=== PATIENT | female | born 1995 ===

== ENCOUNTER 2017-10-27 08:33 | Emergency (ER) | payer OTHER ==
[2017-10-27 09:20] VITALS: BP 121/62
--- NOTE | 2017-10-27 10:27 | UC ---
Jessica Randall Julia, scribed for Pauline Sol MD on 10/27/17 at 0942 . General HPI - HPI Summary HPI Summary: A 22 year old F presents to [facility] with a chief complaint of sore and scratchy throat for the past two weeks without improvement. Symptoms improved on 10/19/17 and then worsened again on 10/25/17. Reports nasal congestion and a recent fever of 99.6; Tylenol last taken yesterday. Denies changes in appetite, ear pain, and post nasal drip. She has been taking Robitussin, Theraflu, and cough drops. She reports recent travel to [facility] while working at a [employer] with young children. Denies chance of . Medications and Allergies reviewed. - History of Current Complaint Chief Complaint: UCRespiratory Stated Complaint: SORE THROAT,CONGESTED Time Seen by Provider: 10/27/17 09:18 Hx Obtained From: Patient Hx Last Menstrual Period: 09/29/17 Onset/Duration: Lasting Weeks, Still Present, Worse Since - two days Pain Intensity: 0 Pain Location at: throat Character: scrathcy Associated Signs & Symptoms: Positive: Fever - Allergy/Home Medications Allergies/Adverse Reactions: Allergies Allergy/AdvReac Type Severity Reaction Status Date / Time No Known Allergies Allergy Verified 10/27/17 08:53 Home Medications: Home Medications Atovaquone/Proguanil (NF) [Malarone (NF)] 10/27/17 [History] Pheniramine/P-Eph/Acetaminophn [Theraflu Flu & Sore Throat] 10/27/17 [History] guaiFENesin LIQ* [Robitussin*] 10/27/17 [History] PMH/Surg Hx/FS Hx/Imm Hx Previously Healthy: Yes - Surgical History Surgical History: None - Family History Known Family History: Positive: Other - non contributory - Social History Occupation: Employed Full-time Lives: With Family Alcohol Use: None Substance Use Type: None Smoking Status (MU): Never Smoked Tobacco Review of Systems Constitutional: Fever Eyes: Negative - ear pain, post nasal drip, ENT: Sore Throat, Sinus Congestion Gastrointestinal: Negative All Other Systems Reviewed And Are Negative: Yes Physical Exam - Summary Physical Exam Summary: Vital Signs Reviewed: Yes A+Ox3, no distress Eyes: Conjunctiva Clear, MARCIN. EOM intact and full ENT: Hearing grossly normal fluid left TM. turbinates inflammed and boggy. + PND mmoist, uvula midline, no exudate, no erythema Neck: Positive: Supple Respiratory: Positive: No respiratory distress, No accessory muscle use + CTA throughout no w/r Cardiovascular: RRR nl s1, s2 no m/r CBT <2 sec abd soft + BS nt/nd no guarding, no distension Musculoskeletal Exam: GOMEZ x 4 without difficulty Strength Intact, ROM Intact Neurological: Positive: Alert, + sensation throughout Psychological: Positive: Normal Response To Family Skin: Positive: no rash, no ecchymosis Triage Information Reviewed: Yes Vital Signs: Initial Vital Signs Temp 99.6 F 10/27/17 08:46 Pulse 72 10/27/17 08:46 Resp 16 10/27/17 08:46 BP 121/62 10/27/17 08:46 Pulse Ox 100 10/27/17 08:46 Course/Dx - Course Course Of Treatment: Patient presents with recurrent sinus congestion, postnasal drip, sore throat after ten-day course and in 3 days improvement. Patient's taken [id number] medication without any relief. Patient with recent travel exposed to people with head congestion colds. On exam, patient with body terminates in postnasal drip. Patient referred left ear. Will prescribe a short term antibiotic. Will prescribe Flonase. Encourage patient to take allergy medication with decongestant. Discussed with patient secretion precautions. Patient comfortable in agreement with plan. - Differential Dx - Multi-Symptom Provider Diagnoses: sinusitis Discharge - Sign-Out/Discharge Documenting (check all that apply): Discharge/Admit/Transfer - Discharge Plan Condition: Stable Disposition: HOME Prescriptions: Azithromycin TAB* [Zithromax TAB (Z-MO) 250 mg #6 tabs] 2 tab PO .TODAY, THEN 1 DAILY #1 mo Fluticasone NASAL SPRAY 50MCG* [Flonase NASAL SPRAY 50MCG*] 2 spray BOTH NARES DAILY #1 btl Patient Education Materials: Rhinosinusitis (ED) Referrals: Taisha Brooks MD [Primary Care Provider] - Additional Instructions: - Stay well hydrated. Drink plenty of non-alcoholic, non-caffinated beverages. - Alternate ibuprofen (Advil, Motrin) 600mg and Tylenol every 3 hours for pain or fever. Take with food. Do NOT take for more than 4-5 days. - These infections are spread by secretions - do NOT share eating or drinking utensils - clean items you share with other people such as cell phones, computer mouse, TV remote, computer tablets,etc. Once you have been antibiotics for 2 days, change your toothbrush and your pillowcase. - get plenty of restful sleep - humidify the air in the room where you sleep - boil water, run a hot steam shower, vaporizer, cups of water by heat register - okay to take over the counter decongestant and cough medication - Zyrtec D, Cynthia D, Claritin D - use nasal spray as prescribed - contact your doctor or return with questions or concerns - Billing Disposition and Condition Condition: STABLE Disposition: Home The documentation as recorded by the Jessica mahajan Julia accurately reflects the service I personally performed and the decisions made by me, Pauline Sol MD.
== END 2017-10-27 09:42 | disposition home or self-care (01) ==
LOC: UCEAST 08:33
DX: J32.9 Chronic sinusitis, unspecified (principal)
CPT/HCPCS: 99201; G0463